=== PATIENT | female | born 1965 | race Caucasian/White ===

== ENCOUNTER → 2016-09-01 | Outpatient (CLI) | payer BC, OTHER ==
[~2016-09-01] MED LIST: FENOFIBRATE160 MG PO; GLUCOPHAGE1000 MG PO; HYZAAR 100-251 EACH PO; LEVOXYL175 MCG PO; LIPITOR TAB 2020 MG PO; LOPRESSOR 50 MG50 MG PO; NORCO 10-325 T1 EACH PO; PRAVACHOL40 MG PO; PROTONIX40 MG PO
[2016-09-01 09:50] LABS: HEMOGLOBIN 13.9 gm/dl (12.3-15.3); RED BLOOD COUNT 4.49 M/UL (4.00-5.10); WHITE BLOOD COUNT 6.5 K/UL (4.5-11.0)
[2016-09-01 10:21] LABS: BUN/CREATININE RATIO 24 (0-10)
== END ==
LOC: OPSV2 08:00
PROVIDERS: Orthopaedic Surgery
DX: Z01.810 Encounter for preprocedural cardiovascular examination (principal); Z01.812 Encounter for preprocedural laboratory examination; M65.342 Trigger finger, left ring finger; Z88.0 Allergy status to penicillin
CPT/HCPCS: 80048; 85025; 93005

== ENCOUNTER → 2016-09-15 | Day surgery (SDC) | payer BC, OTHER ==
[~2016-09-15] VITALS: Ht 160 cm; Wt 101.6 kg
== END | disposition home or self-care (01) ==
LOC: OR 07:59
PROVIDERS: Orthopaedic Surgery
PROC: 0LN80ZZ Release Left Hand Tendon, Open Approach (ICD-10-PCS; principal; 2016-09-15 12:45)
DX: M65.342 Trigger finger, left ring finger (principal); I10 Essential (primary) hypertension; E78.5 Hyperlipidemia, unspecified; E11.9 Type 2 diabetes mellitus without complications; F17.210 Nicotine dependence, cigarettes, uncomplicated; E07.9 Disorder of thyroid, unspecified; Z90.49 Acquired absence of other specified parts of digestive tract; Z98.51 Tubal ligation status; Z88.1 Allergy status to other antibiotic agents; Z79.4 Long term (current) use of insulin; Z79.899 Other long term (current) drug therapy; Z87.19 Personal history of other diseases of the digestive system
CPT/HCPCS: 82962; J2250; J3010; J7030; J7120

== ENCOUNTER 2020-06-19 00:44 | Inpatient (IN) | payer OTHER ==
[~2020-06-19] VITALS: Ht 160 cm; Wt 99.8 kg
[~2020-06-19 00:44] MED LIST changes: +ADMELOG SO100 UNIT/1 SQ; +ADMELOG100 UNIT/1 SC; +ALBUTEROL1.25 MG/3 INH; +ALL DAY ALLERGY10 M2 PO; +ASPIR 8181 MG PO; +ASPIRIN CHEWABL81 MG PO; +ATORVASTATIN CA20 MG PO; +ATORVASTATIN CA40 MG PO; +B12 PO; +BASAGLAR; +BASAGLAR K100 UNIT/1 SC; +BASAGLAR K100 UNIT/1 SQ; +BYDUREON P2 MG/0.65 SQ; +BYDUREON2 MG SQ; +FENOFIBRATE160 M1 PO; +IBUPROFEN400 MG PO; +IMDUR ER TAB 3030 MG PO; +LEVOTHYROXINE200 MC1 PO; +LOPID TAB 600600 MG PO; +LOPRESSOR50 MG PO; +LOSARTAN-HCTZ1 EAC1 PO; +MAGNESIUM400 M2 PO; +METFORMIN HCL1000 MG PO; +METFORMIN HCL500 M2 PO; +METOPROLOL PO; +NITROSTAT0.4 MG SL; +NORCO 5-325 TA1 EACH PO; +NOVOLOG FL100 UNIT/1 SQ; +OMEPRAZOLE20 M1 PO; +OMEPRAZOLE20 M2 PO; +OZEMPIC1 MG/0.75 SQ; +SYMBICORT 16010.2 GM INH; +SYNTHROID200 MCG PO; +SYNTHROID25 MCG PO; +TYLENOL 500 MG500 MG PO; +VENTOLIN HFA 66.7 GM INH
[2020-06-19 01:38] LABS: HEMOGLOBIN 12.2 gm/dl (12.3-15.3); RED BLOOD COUNT 3.96 M/UL (4.00-5.10); WHITE BLOOD COUNT 8.9 K/UL (4.5-11.0)
[2020-06-19 01:55] LABS: BUN/CREATININE RATIO 22 (0-10)
[2020-06-20 04:04] LABS: HEMOGLOBIN 11.4 gm/dl (12.3-15.3); RED BLOOD COUNT 3.61 M/UL (4.00-5.10)
[2020-06-20 04:07] LABS: WHITE BLOOD COUNT 5.7 K/UL (4.5-11.0)
[2020-06-20 04:29] LABS: BUN/CREATININE RATIO 25 (0-10)
[2020-06-20] MEDS ORDERED: NITROGLYCERIN0.4 MG SL (08:47)
[2020-06-20] MEDS ORDERED: ASPIRIN EC81 MG PO (08:47)
[2020-06-20] MEDS ORDERED: CLOPIDOGREL75 MG PO (08:47)
== END 2020-06-20 12:03 | disposition home or self-care (01) | DRG 247 ==
LOC: ER1 00:44 → CDU 06:32 → PROG CARE 15:24
PROVIDERS: Family Medicine; ADMIT Internal Medicine
PROC: 4A023N7 Measurement of Cardiac Sampling and Pressure, Left Heart, Percutaneous Approach (ICD-10-PCS; principal; 2020-06-19)
PROC: 027034Z Dilation of Coronary Artery, One Artery with Drug-eluting Intraluminal Device, Percutaneous Approach (ICD-10-PCS; 2020-06-19)
PROC: B2111ZZ Fluoroscopy of Multiple Coronary Arteries using Low Osmolar Contrast (ICD-10-PCS; 2020-06-19)
PROC: B2151ZZ Fluoroscopy of Left Heart using Low Osmolar Contrast (ICD-10-PCS; 2020-06-19)
DX: I21.4 Non-ST elevation (NSTEMI) myocardial infarction (principal); E11.9 Type 2 diabetes mellitus without complications; I10 Essential (primary) hypertension; E03.9 Hypothyroidism, unspecified; F17.210 Nicotine dependence, cigarettes, uncomplicated; J44.9 Chronic obstructive pulmonary disease, unspecified; E78.5 Hyperlipidemia, unspecified; K21.9 Gastro-esophageal reflux disease without esophagitis; Z90.49 Acquired absence of other specified parts of digestive tract; Z88.0 Allergy status to penicillin; E66.01 Morbid (severe) obesity due to excess calories; Z79.899 Other long term (current) drug therapy; Z82.49 Family history of ischemic heart disease and other diseases of the circulatory system; Z79.84 Long term (current) use of oral hypoglycemic drugs; Z68.39 Body mass index [BMI] 39.0-39.9, adult
CPT/HCPCS: 71045; 75710; 80048; 80053; 82550; 82553; 82962; 83874; 84439; 84443; 84484; 85025; 85347; 85379; 85730; 86140; 93005; 96374; 96375; 99152; 99153; 99285; C1725; C1760; C1769; C1874; C1887; C9600; J0461; J1644; J2250; J2270; J3010; J7040; Q9963; Q9967; U0002

== ENCOUNTER → 2020-09-17 | Outpatient (CLI) | payer OTHER ==
[~2020-09-17] MED LIST changes: +ASPIRIN EC81 MG PO; +CLOPIDOGREL75 MG PO; +NITROGLYCERIN0.4 MG SL
== END ==
LOC: EXRD 09:33
DX: J20.9 Acute bronchitis, unspecified (principal)
CPT/HCPCS: 71046

== ENCOUNTER → 2020-12-15 | Outpatient (CLI) | payer OTHER | LOC: EXRD 10:03 | DX: M79.645 Pain in left finger(s) (principal) | CPT/HCPCS: 73130 ==

== ENCOUNTER → 2021-10-12 | Outpatient (CLI) | payer OTHER | LOC: EXRD 09:22 | DX: S99.922A Unspecified injury of left foot, initial encounter (principal) | CPT/HCPCS: 73630 ==